=== PATIENT | female | born 1990 | race Caucasian/White ===

== ENCOUNTER 2016-06-10 20:18 | Emergency (ER) | payer SELFPAY ==
[2016-06-10] MEDS ORDERED: NEB-ALBUTEROL 2.5 MG/3 ML INH ONE (21:09)
== END 2016-06-10 21:43 | disposition home or self-care (01) ==
LOC: ER 20:18
DX: J45.21 Mild intermittent asthma with (acute) exacerbation (principal); J45.990 Exercise induced bronchospasm
CPT/HCPCS: 71010; 94640